=== PATIENT | female | born 1995 | race Caucasian/White ===

== ENCOUNTER 2017-11-14 22:21 | Inpatient (IN) ==
[2017-11-14] MEDS ORDERED: ONDANSETRON 4 MG/2 ML VIAL IV PRN (22:30)
[2017-11-14] MEDS ORDERED: MEPERIDINE 50 MG/1 ML VIAL IM PRN (22:30)
[2017-11-14] MEDS ORDERED: BUTORPHANOL 2 MG/ML VIAL IV PRN (22:35)
[2017-11-14 23:01] LABS: Basophils % 0.2 % (0.0-0.8); Eosinophils # 0.2 10*3/uL (0.0-0.87); Eosinophils % 1.4 % (0.00-10.9); Hematocrit 35.8 VOL% (35.7-47.0); Hemoglobin 11.3 GM/DL (12.0-16.0); Immature Granulocytes % 0.7 %; Immature Granulocytes Absolute 0.09 #; Lymphocytes # 2.6 10*3/uL (1.4-4.0); Lymphocytes % 21.8 % (21.3-54.2); Mean Corpuscular HGB Conc 31.6 GM/DL (32-36); Mean Corpuscular Hemoglobin 27 PG (27-34); Mean Platelet Volume 11.7 FL (9.6-12.0); Monocytes # 0.6 10*3/uL (0.11-0.8); Monocytes % 4.9 % (1.7-12.7); Neutrophils # 8.6 10*3/uL (1.4-7.4); Platelet Count 195 T/CUMM (130-400); Red Blood Count 4.21 MC/CUMM (3.8-5.5); Red Cell Distribution Width 14.2 % (9.3-17.3); White Blood Count 12.1 T/CUMM (4-12)
[2017-11-14 23:09] LABS: INR 0.9; PT Patient Result 9.4 SECS; Partial Thromboplastin Time 23.4 SECS (0-40)
[2017-11-14 23:24] LABS: Albumin 2.3 G/DL (3.4-5.0); Bilirubin,Total 0.5 MG/DL (0.2-1.0); Calcium 8.9 MG/DL (8.5-10.1); Osmolality,Calculated 273.7 MOS/KG (273-304); Potassium 3.5 MMOL/L (3.5-5.1); Total Protein 6.8 G/DL (6.4-8.3)
[2017-11-15] MEDS: LACTATED RINGERS 1,000 ML IV SCH ×2 (00:18→08:42)
[2017-11-15] MEDS: BUTORPHANOL 1 MG/ML VIAL IV PRN ×2 (04:34→07:17)
[2017-11-15] MEDS ORDERED: diphenhydrAMINE 50 MG/1 ML VIAL IV PRN (08:29)
[2017-11-15] MEDS ORDERED: hydrOXYzine HCL 25 MG/1 ML VIAL IM PRN ×2 (08:29→08:34)
[2017-11-15] MEDS ORDERED: ePHEDrine 50 MG/ML AMP IV PRN (08:29)
[2017-11-15] MEDS ORDERED: CITRIC ACID/SODIUM CITRATE 30 ML UDCUP PO ONE (08:29)
[2017-11-15] MEDS ORDERED: FAMOTIDINE 20 MG/2 ML VIAL IV ONE (08:29)
[2017-11-15] MEDS ORDERED: PROMETHAZINE 25 MG/1 ML VIAL IM PRN (08:29)
[2017-11-15] MEDS: OXYTOCIN/LR 20 UNIT/1,000 ML BAG IV SCH (09:36)
[2017-11-15 10:19] LABS: Apearance,Urine CLEAR (Clear); Bilirubin,Urine Negative (Negative); Blood, Urine Small mg/dL (Negative); Glucose,Urine (UA) Negative (Negative); Ketones,Urine Negative (Negative); Nitrite,Urine Negative (Negative); Protein,Urine Negative; RBC,Urine <1 /HPF (0-4); Squamous Epithelial Cell,Urine Occasional /HPF (0-10); Urine Color Straw (Yellow); Urine Specific Gravity 1.004 (1.001-1.035); Urine Urobilinogen < 2.0 EU/DL (0.2-1.0); WBC,Urine <1 /HPF (0-6)
[2017-11-15] MEDS ORDERED: RHO(D) IMMUNE GLOBULIN 300 MCG SYRINGE IM ONE (13:02)
[2017-11-15] MEDS ORDERED: OXYTOCIN/LR 20 UNIT/1,000 ML BAG IV ONE (13:02)
[2017-11-15] MEDS ORDERED: HYDROCORTISONE 2.5% RECTAL CREAM 30 GM TUBE TOP PRN (13:02)
[2017-11-15] MEDS ORDERED: ACETAMINOPHEN 325 MG TABLET PO PRN (13:02)
[2017-11-15] MEDS ORDERED: LANOLIN 50% CREAM 0.3 OZ TUBE TOP PRN (13:02)
[2017-11-15] MEDS ORDERED: WITCH HAZEL PADS 100/JAR TOP PRN (13:02)
[2017-11-15] MEDS ORDERED: BENZOCAINE 20%/MENTHOL 0.5% SPRAY 56 GM CAN TOP PRN (13:02)
[2017-11-15] MEDS ORDERED: DIPH/TET/ACEL PERT BOOSTER VACCINE 0.5 ML VIAL IM ONE (13:02)
[2017-11-15] MEDS ORDERED: BISACODYL 10 MG SUPP RECTAL PRN (13:02)
[2017-11-15] MEDS ORDERED: MEASLES/MUMPS/RUBELLA VACCINE 0.5 ML VIAL SUBCUT ONE (13:02)
[2017-11-15] MEDS ORDERED: ONDANSETRON 4 MG/2 ML VIAL IV PRN (13:02)
[2017-11-15] MEDS: IBUPROFEN 800 MG TABLET PO PRN ×2 (14:47→23:46)
[2017-11-15] MEDS: oxyCODONE/ACETAMINOPHEN 5-325 MG TABLET PO PRN (18:39)
[2017-11-15] MEDS: DOCUSATE SODIUM 100 MG CAPSULE PO SCH (21:57)
[2017-11-16] MEDS: oxyCODONE/ACETAMINOPHEN 5-325 MG TABLET PO PRN ×3 (06:32→20:40)
[2017-11-16 06:33] LABS: Basophils # 0.1 10*3/uL (0.0-0.2); Basophils % 0.4 % (0.0-0.8); Eosinophils # 0.3 10*3/uL (0.0-0.87); Eosinophils % 1.9 % (0.00-10.9); Hematocrit 27.9 VOL% (35.7-47.0); Immature Granulocytes % 0.8 %; Lymphocytes # 2.9 10*3/uL (1.4-4.0); Lymphocytes % 22.1 % (21.3-54.2); Mean Corpuscular HGB Conc 33.3 GM/DL (32-36); Mean Corpuscular Hemoglobin 27 PG (27-34); Mean Corpuscular Volume 82.1 FL (87-102); Mean Platelet Volume 11.5 FL (9.6-12.0); Monocytes # 0.7 10*3/uL (0.11-0.8); Monocytes % 5.5 % (1.7-12.7); Neutrophils # 9.2 10*3/uL (1.4-7.4); Neutrophils % 69.3 % (38.7-73.9); Red Cell Distribution Width 14.5 % (9.3-17.3); White Blood Count 13.2 T/CUMM (4-12)
[2017-11-16] MEDS: IBUPROFEN 800 MG TABLET PO PRN ×3 (06:33→20:40)
[2017-11-16 06:34] LABS: Hemoglobin 9.3 GM/DL (12.0-16.0); Platelet Count 151 T/CUMM (130-400)
[2017-11-16] MEDS: DOCUSATE SODIUM 100 MG CAPSULE PO SCH ×2 (09:07→20:40)
[2017-11-16] MEDS: OXYTOCIN/LR 20 UNIT/1,000 ML BAG IV SCH (22:15)
[2017-11-16] MEDS: fentaNYL 2 MCG/ROPIV 0.2% EPID 150 ML EPIDURAL SCH (22:15)
[2017-11-16] MEDS: LACTATED RINGERS 1,000 ML IV SCH (22:16)
[2017-11-17] MEDS: IBUPROFEN 800 MG TABLET PO PRN ×2 (01:59→08:14)
[2017-11-17] MEDS: oxyCODONE/ACETAMINOPHEN 5-325 MG TABLET PO PRN ×2 (01:59→08:17)
[2017-11-17] MEDS: LACTATED RINGERS 1,000 ML IV SCH (06:11)
[2017-11-17] MEDS: fentaNYL 2 MCG/ROPIV 0.2% EPID 150 ML EPIDURAL SCH (06:11)
[2017-11-17] MEDS ORDERED: MAGNESIUM HYDROXIDE SUSP 30 ML UDCUP PO PRN (08:40)
[2017-11-17] MEDS ORDERED: SIMETHICONE CHEW 80 MG TABLET PO PRN (08:41)
[2017-11-17 08:57] VITALS: BP 127/86
[2017-11-17] MEDS: DOCUSATE SODIUM 100 MG CAPSULE PO SCH (10:29)
== END 2017-11-17 13:00 | disposition home or self-care (01) | DRG 560 ==
LOC: N.OBOUT 22:21 → N.LD 22:22 → N.OB 11-15 16:15
PROVIDERS: ADMIT Specialist; ATTEND Specialist